=== PATIENT | male | born 1970 | race Caucasian/White ===

== ENCOUNTER 2019-03-12 12:08 | Emergency (ER) | payer OTHER ==
[~2019-03-12] VITALS: Ht 188 cm; Wt 100.0 kg
[2019-03-12 12:10] VITALS: Ht 188 cm; Wt 100.0 kg
--- NOTE | 2019-03-12 12:28 | ERD ---
ER Documentation Chief Complaint Chief Complaint Suicidal ideations, depression HPI This is a 49-year-old male with a past medical history of hypertension presenting today for suicidal ideations. The patient reports that after getting out of correction, he turned [employer]. He has been trying to do right by God, but it is very difficult due to his homelessness. He endorses bouts of depression and heavy alcohol abuse. The patient endorses suicidal ideations. He has a desire to kill himself, because he feels that life is not worth living. The patient has reportedly drunk alcohol in the past in an attempt to kill himself. The pa sy reports difficulty with sleep secondary to being on the streets. He has trouble focusing on things that he used to like to do. His interest wanes. He endorses a lot of guilty feelings, because he feels that he has failed God. He has low energy level. He does not endorse decreased appetite. He does not endorse auditory or visual hallucinations. The patient does not endorse homicidal ideations. The patient reports that he was evaluated at [facility] 1 to 2 days ago and was ultimately discharged. He does not feel that his symptoms have improved. The patient denies feeling sick recently. The patient denies fever or chills. The patient has had no headache or vision changes. The patient does not endorse neck or back pain. The patient denies lightheadedness or dizziness. The patient has had no chest pain or trouble breathing. The patient denies nausea or vomiting. The patient denies abdominal pain. The patient denies changes to bowel movements or urination. The patient has had no focal deficits. The patient has had no weakness or numbness or tingling to the face or extremities. ROS All systems reviewed and are negative except as per history of present illness. PMhx/Soc Medical and Surgical Hx: pt denies Surgical Hx History of Surgery: No Anesthesia Reaction: No Hx Neurological Disorder: No Hx Respiratory Disorders: No Hx Cardiac Disorders: Yes (Hypertension) Hx Psychiatric Problems: Yes (Depression) Hx Miscellaneous Medical Probl: No Hx Alcohol Use: Yes Hx Substance Use: No Hx Tobacco Use: No FmHx Family History: No diabetes Physical Exam Vitals Vital Signs Date Temp Pulse Resp B/P (MAP) Pulse Ox O2 O2 Flow FiO2 Time Delivery Rate 03/12/19 97.2 101 16 192/118 99 12:10 (142) 03/12/19 97.2 101 16 192/118 99 Room Air 12:10 (142) Physical Exam Const: No acute distress Head: Atraumatic Eyes: Normal Conjunctiva ENT: Normal External Ears, Nose and Mouth. Neck: Full range of motion. No meningismus. Resp: Clear to auscultation bilaterally Cardio: Regular rate and rhythm, no murmurs Abd: Soft, non tender, non distended. Normal bowel sounds Skin: No petechiae or rashes Back: No midline or flank tenderness Ext: No cyanosis, or edema Neur: Awake and alert Psych: Tearful, depressed affect with suicidal ideations. No homicidal ideations. No auditory or visual hallucinations. Please see HPI for further detail. Result Diagram: 03/12/19 1229 03/12/19 1229 Results 24 hrs Laboratory Tests Test 03/12/19 12:25 03/12/19 12:29 Bedside Glucose 90 mg/dL White Blood Count 8.3 10^3/ul Red Blood Count 5.61 10^6/ul Hemoglobin 17.5 g/dl Hematocrit 51.0 % Mean Corpuscular Volume 90.9 fl Mean Corpuscular Hemoglobin 31.2 pg Mean Corpuscular Hemoglobin Concent 34.3 g/dl Red Cell Distribution Width 12.1 % Platelet Count 209 10^3/UL Mean Platelet Volume 9.8 fl Immature Granulocytes % 0.200 % Neutrophils % 76.9 % Lymphocytes % 15.3 % Monocytes % 7.0 % Eosinophils % 0.4 % Basophils % 0.2 % Nucleated Red Blood Cells % 0.0 /100WBC Immature Granulocytes # 0.020 10^3/ul Neutrophils # 6.4 10^3/ul Lymphocytes # 1.3 10^3/ul Monocytes # 0.6 10^3/ul Eosinophils # 0.0 10^3/ul Basophils # 0.0 10^3/ul Nucleated Red Blood Cells # 0.0 10^3/ul Sodium Level 135 mmol/L Potassium Level 4.4 mmol/L Chloride Level 98 mmol/L Carbon Dioxide Level 23 mmol/L Anion Gap 14 Blood Urea Nitrogen 16 mg/dl Creatinine 0.94 mg/dl Est Glomerular Filtrat Rate mL/min > 60 mL/min Glucose Level 99 mg/dl Calcium Level 10.4 mg/dl Total Bilirubin 2.0 mg/dl Direct Bilirubin 0.00 mg/dl Indirect Bilirubin 2.0 mg/dl Aspartate Amino Transf (AST/SGOT) 38 IU/L Alanine Aminotransferase (ALT/SGPT) 49 IU/L Alkaline Phosphatase 85 IU/L Total Protein 9.2 g/dl Albumin 5.1 g/dl Globulin 4.10 g/dl Albumin/Globulin Ratio 1.24 Salicylates Level < 1.0 mg/dl Acetaminophen Level < 10.0 ug/ml Ethyl Alcohol Level < 10.0 mg/dl Procedures/MDM MDM The patient's presentation warrants further investigation. Previous medical records, if available, were reviewed. LABS The patient's laboratory testing was obtained and reviewed. No emergent treatment was required unless described below. CBC: No E/o systemic infection or severe anemia or thrombocytopenia Chemistry: No E/o severe acidosis or alkalosis or renal failure or liver disease or diabetic ketoacidosis Tox: No E/o alcohol abuse. No E/o salicylate or acetaminophen use. UDS is pending. TREATMENT/DISPOSITION The patient symptoms are consistent with major depressive disorder with suicidal ideations. The patient's workup included a medical screening examination, laboratory analysis, and diagnostic imaging such as EKG, chest x-ray or CT brain as indicated. The patient's laboratory analysis, diagnostic imaging do not suggest an acute organic pathology. At this time I believe the patient's presentation is consistent with underlying psychiatric illness and likely exacer bation of this illness and/or psychosis. I have a much lower clinical concern for delirium or acute organic pathology such as toxicologic, metabolic, ischemic, intracranial hemorrhage, infectious pr ocess. However, we must rule this out prior to relying a diagnosis of underlying psychiatric illness. The patient is medically cleared for psychiatric evaluation. I kept the patient and/or family informed of laboratory and diagnostic imaging results throughout the emergency room course. The patient did not require any physical or chemical restraint while under my care. Psychiatric consultation: Telepsychiatry has been consulted on this case to evaluate the patient for possible acute psychiatric illness that would require inpatient hospitalization. The patient is currently pending this consult. Medication recommendations will be addressed. The patient will be signed out to the oncoming physician at 3 PM on March 12, 2019. DISCLAIMER Inadvertent spelling and grammatical errors are likely due to EHR/dictation software use and do not reflect on the overall quality of patient care. Note that the electronic time recorded on this note does not necessarily reflect the actual time of the patient encounter. Departure Diagnosis: Primary Impression: Major depressive disorder Major depression recurrence: unspecified whether recurrent Active/Remission status: currently active Major depression episode severity: moderate Qualified Codes: F32.1 - Major depressive disorder, single episode, moderate Additional Impressions: Suicidal ideations Alcohol abuse Condition: Serious SUSANNE FLORES MD Mar 12, 2019 12:27
[2019-03-12] MEDS ORDERED: NICARDipine HCL 30 MG CAPSULE PO ONE (16:00)
--- NOTE | 2019-03-12 17:29 | PSY ---
Date/Time of Note Date/Time of Note DATE: 03/12/19 TIME: 17:22 Psychiatric Subjective Eval Consent Pt consented to telemedicine: Yes Subjective Evaluation Patient location: emergency Chief Complaint: i tried to kill myself Reason for consult: suicidal attempt History of present illness patient is a 49 yo male homeless who has a PPH of depression, anxiety and methamphetamine abuse who was brought to the ER by ambulance after he was found in his motel unconscious after he overdose on methamphetamine, he states that he tried to kill himself because he feels hopeless and helpless due to homelessness, he denies any past or current manic or psychotic symptoms he denies any current si but does not know if he wont feel suicidal again after discharged, he denies any past attempt , no psych meds he wants to be admitted to a psych unit for safety and treatment Past psychiatric history denies Medical history Problems Medical Problems: (1) Alcohol abuse Status: Acute (2) Major depressive disorder Status: Acute (3) Suicidal ideations Status: Acute Substance Abuse Substance abuse history: Yes (methamphetamine ) Prior substance abuse treatmen: No Social History Marital status: single DPA/Conservatorship: No Occupation/Halfway: no Psychiatric Objective Eval Physical Examination: Physical Examination: Applicable Sleep: Insomnia Energy: Decreased Interest: Decreased Mental Status Examination: Appearance: Groomed, Disheveled Psychomotor Activity: Normal Behavior: Cooperative Speech: Clear AFFECT: Appropriate, Depressed Mood: Depressed, Anxious Though Process: Linear Thought Content: Normal Suicidal: No (but serious suicidaal attempt) Homicidal: No On 72 hour hold: No Orientation: x3 Cognition: Alert Insight: Impared Judgement: Impared Laboratory Results Laboratory Tests Test 03/12/19 12:25 03/12/19 12:29 Bedside Glucose 90 mg/dL White Blood Count 8.3 10^3/ul Red Blood Count 5.61 10^6/ul Hemoglobin 17.5 g/dl Hematocrit 51.0 % Mean Corpuscular Volume 90.9 fl Mean Corpuscular Hemoglobin 31.2 pg Mean Corpuscular Hemoglobin Concent 34.3 g/dl Red Cell Distribution Width 12.1 % Platelet Count 209 10^3/UL Mean Platelet Volume 9.8 fl Immature Granulocytes % 0.200 % Neutrophils % 76.9 % Lymphocytes % 15.3 % Monocytes % 7.0 % Eosinophils % 0.4 % Basophils % 0.2 % Nucleated Red Blood Cells % 0.0 /100WBC Immature Granulocytes # 0.020 10^3/ul Neutrophils # 6.4 10^3/ul Lymphocytes # 1.3 10^3/ul Monocytes # 0.6 10^3/ul Eosinophils # 0.0 10^3/ul Basophils # 0.0 10^3/ul Nucleated Red Blood Cells # 0.0 10^3/ul Urine Color YELLOW Urine Clarity CLEAR Urine pH 6.0 Urine Specific [place] 1.003 Urine Ketones TRACE mg/dL Urine Nitrite NEGATIVE mg/dL Urine Bilirubin NEGATIVE mg/dL Urine Urobilinogen NEGATIVE mg/dL Urine Leukocyte Esterase NEGATIVE [place]/ul Urine Microscopic RBC 0 /HPF Urine Microscopic WBC 1 /HPF Urine Hemoglobin 1+ mg/dL Urine Glucose NEGATIVE mg/dL Urine Total Protein NEGATIVE mg/dl Sodium Level 135 mmol/L Potassium Level 4.4 mmol/L Chloride Level 98 mmol/L Carbon Dioxide Level 23 mmol/L Anion Gap 14 Blood Urea Nitrogen 16 mg/dl Creatinine 0.94 mg/dl Est Glomerular Filtrat Rate mL/min > 60 mL/min Glucose Level 99 mg/dl Calcium Level 10.4 mg/dl Total Bilirubin 2.0 mg/dl Direct Bilirubin 0.00 mg/dl Indirect Bilirubin 2.0 mg/dl Aspartate Amino Transf (AST/SGOT) 38 IU/L Alanine Aminotransferase (ALT/SGPT) 49 IU/L Alkaline Phosphatase 85 IU/L Total Protein 9.2 g/dl Albumin 5.1 g/dl Globulin 4.10 g/dl Albumin/Globulin Ratio 1.24 Salicylates Level < 1.0 mg/dl Urine Opiates Screen Negative Acetaminophen Level < 10.0 ug/ml Urine Barbiturates Negative Urine Amphetamines Screen POSITIVE Urine Benzodiazepines Screen Negative Urine Cocaine Screen Negative Urine Cannabinoids Negative Ethyl Alcohol Level < 10.0 mg/dl Assessment and Plan Assessment/Diagnosis Diagnosis major depressive do severe without psych features recurrent methamphetamine abuse Recommendation/Plan Medication Management wellbutrin xl 150 mg po qam trazodone 100 mg po qhs Discharge Disposition: Psychiatric inpatient Legal Status: Voluntary LEYDI LUNDBERG MD Mar 12, 2019 17:29
[2019-03-13 00:12] VITALS: BP 143/99; PULSE 88; RESP 15
== END 2019-03-13 00:16 | disposition short-term general hospital (02) ==
LOC: E/R 12:08
DX: F32.1 Major depressive disorder, single episode, moderate (principal); F10.10 Alcohol abuse, uncomplicated; I10 Essential (primary) hypertension
CPT/HCPCS: 36415; 80053; 80307; 81001; 82962; 85025; Z7502; Z7610; 99285